=== PATIENT | female | born 1965 | race Caucasian/White ===

== ENCOUNTER 2019-11-03 09:41 | Outpatient (CLI) | payer BC | END 2019-11-03 09:42 | disposition home or self-care (01) | LOC: DTY/OP 09:41 | PROVIDERS: ATTEND Family Medicine | DX: E16.2 Hypoglycemia, unspecified (principal) | CPT/HCPCS: 97802 ==

== ENCOUNTER 2023-11-07 14:44 | Outpatient (CLI) | payer BC | END 2023-11-07 14:45 | disposition home or self-care (01) | LOC: BICMAMMO 14:44 | PROVIDERS: ATTEND Family Medicine | DX: Z12.31 Encounter for screening mammogram for malignant neoplasm of breast (principal) | CPT/HCPCS: 77063; 77067 ==